=== PATIENT | female | born 1995 | race Caucasian/White ===

== ENCOUNTER 2018-08-15 13:35 | Emergency (ER) | payer OTHER ==
[~2018-08-15] VITALS: Ht 165.1 cm; Wt 54.4 kg
[~2018-08-15 13:35] MED LIST: PREDNISONE50 MG PO; TRIAMCINOLONE A15 G1 TP
[2018-08-15] MEDS ORDERED: VENTOLIN HFA 1818 GM INH ×3 (13:41→15:06)
[2018-08-15] MEDS ORDERED: PAXIL10 MG PO (13:49)
[2018-08-15 14:44] LABS: URINE BILIRUBIN NEGATIVE (Negative); URINE BLOOD NEGATIVE (Negative); URINE CLARITY CLEAR; URINE COLOR YELLOW; URINE GLUCOSE-RANDOM* NEGATIVE (Negative); URINE KETONES NEGATIVE (Negative); URINE LEUKOCYTES-REFLEX NEGATIVE (Negative); URINE NITRITE-REFLEX NEGATIVE (Negative); URINE PROTEIN (DIPSTICK) NEGATIVE (Negative); URINE UROBILINOGEN 0.2 E.U./dl (0.2-1.0)
[2018-08-15 15:07] LABS: ABSOLUTE NEUTROPHILS 4.9 thou/uL (1.4-8.2); BASOPHILS 0.6 % (0.0-2.0); EOSINOPHILS 0.5 % (0.0-3.0); HEMATOCRIT 43.8 % (37.0-47.0); HEMOGLOBIN 15.3 gm/dL (12.0-15.0); LYMPHOCYTES 29.4 % (24.0-44.0); MCH 30.1 pg (26.0-34.0); MONOCYTES 6.1 % (1.0-8.0); PLATELET COUNT 237 thou/uL (150-400); POLYS 63.4 % (36.0-66.0); RDW 12.4 % (10.5-14.5); WBC 7.8 thou/uL (4.0-11.0)
--- NOTE | 2018-08-15 15:19 | EKG ---
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 : 1995 Requested By: Stephen Pool Order Number: [id number] MD: Rachid Nuñez Measurements Intervals [place] Rate: 67 P: 55 WI: 128 QRS: 38 QRSD: 99 T: 41 QT: 401 QTc: 424 Interpretive Statements Sinus rhythm No previous ECG available for comparison Electronically Signed On 08-15-2018 15:19:14 CDT by Rachid Nuñez [email or web address] ��������������������������������������������� <ELECTRONICALLY SIGNED> ���������������������������������������� By: Rachid Nuñez MD ��������������������������������������������� 08/15/18 1519 1438 1438 Rachid Nuñez MD /EPI
[2018-08-15 15:20] LABS: ANION GAP 11 mmol/L (7-16); BUN 15 mg/dL (7-18); CALCIUM 10.2 mg/dL (8.5-10.1); CHLORIDE 101 mmol/L (98-107); CO2 29 mmol/L (21-32); CREATININE 0.9 mg/dL (0.6-1.0); GLUCOSE 98 mg/dL (74-106); POTASSIUM 3.6 mmol/L (3.5-5.1); SODIUM 141 mmol/L (136-145)
[2018-08-15 15:29] LABS: TROPONIN-I <0.06 ng/mL (<0.06)
[2018-08-15 15:40] VITALS: BP 122/93
== END 2018-08-15 15:40 | disposition home or self-care (01) ==
LOC: ER 13:35
PROVIDERS: Emergency Medicine
DX: M94.0 Chondrocostal junction syndrome [Tietze] (principal); J45.909 Unspecified asthma, uncomplicated; F17.210 Nicotine dependence, cigarettes, uncomplicated; Z88.0 Allergy status to penicillin; Z88.1 Allergy status to other antibiotic agents